=== PATIENT | female | born 2005 | race Caucasian/White ===

== ENCOUNTER 2024-07-25 12:29 | Emergency (ER) | payer MEDICAID, SELFPAY ==
[2024-07-25 12:30] VITALS: BP 139/95; PULSE 101; RESP 20; TEMP 36.1; O2SAT 98; BMI 19.6
--- NOTE | 2024-07-25 13:12 | EDS_ITS ---
HPI History of Present Illness Chief Complaint: Headache PFSH PFSH Allergy/AdvReac Type Severity Reaction Status Date / Time Sulfa (Sulfonamide Allergy Intermediate Hives Verified 07/25/24 12:31 Antibiotics) EXAM Physical Exam Const Vital Signs: 07/25/24 12:30 Temperature 97 F L Temperature Source Temporal Pulse Rate 101 H Respiratory Rate 20 H Blood Pressure 139/95 H Blood Pressure Mean 109 Pulse Ox 98 Oxygen Delivery Method Room Air Discharge Plan Triage Chief Complaint: Headache ED Provider: Dale Crystal Dx/Rx/DC Orders Primary Care Provider: NOT,DEFINED Referrals: NOT,DEFINED [Primary Care Provider] - Print Language: Slovak
--- NOTE | 2024-07-25 13:12 | EX.ED.VIS.HA ---
HPI History of Present Illness Chief Complaint: Headache Informant: patient Onset/Context/Timing Onset: Today Context: Gradual Timing: Continuous Quality -Headache: Positive for Sharp and Dull Location: Right side of head Worsened by: Movement Relieved by: Nothing Associated Symptoms/Injury Associated Symptoms: Positive for Nausea, Vomiting, Sinus Pressure, Numbness, Tingling, Visual Changes and Photophobia; Negative for Fever, Sore Throat, Preceding Aura, Blurred Vision or Visual Loss Narrative Narrative: Patient presents with a headache that began today. Patient states it is mainly over the right side of her head. Patient describes it as dull but sharp at times. Patient states it is constant. Patient states it is worse with certain movements. Patient admits to some nausea and vomiting. Patient admits to some numbness and tingling in her left arm. Patient also admits to some photophobia and spots in front of her eyes. The patient states she has a history of migraine headaches. Patient states she has not been taking her migraine prophylactic medication. [facility] Medical History (Updated 07/25/24 @ 15:[address] Dale Crystal DO) Migraines Home Medications ?Medication ?Instructions ?Recorded ?Last Taken ?Type NK 07/25/24 Unknown History Allergy/AdvReac Type Severity Reaction Status Date / Time Sulfa (Sulfonamide Allergy Intermediate Hives Verified 07/25/24 12:31 Antibiotics) Surgical History Hx of appendectomy Social History Smoking Status: Never smoker ROS ROS ED Constitutional Constitutional ED: Denies chills or fever(s) Eyes Eyes: Reports change in vision; Denies blurry vision ENT ENT ED: Denies rhinorrhea or sore throat Cardiovascular Cardiovascular: Denies chest pain or palpitations Respiratory/Chest Respiratory/Chest: Denies cough or dyspnea Gastrointestinal Gastrointestinal: Reports nausea and vomiting Genitourinary Genitourinary ED: Denies dysuria or hematuria Musculoskeletal Musculoskeletal: Reports neck pain; Denies back pain Integumentary Denies abscess or rash Neurologic Neurologic: Reports headache(s) and paresthesias LUE; Denies weakness Allergic/Immunologic Allergic/Immunologic ED: Denies mouth swelling or urticaria EXAM Physical Exam Const Vital Signs: 07/25/24 12:30 07/25/24 14:30 Temperature 97 F L Temperature Source Temporal Pulse Rate 101 H 85 Respiratory Rate 20 H 16 Blood Pressure 139/95 H 104/65 Blood Pressure Mean 109 78 Pulse Ox 98 98 Oxygen Delivery Method Room Air Room Air Positive well nourished and well developed General Appearance ED: well developed and NAD HEENT Reports moist mucous membranes atraumatic and temporal artery tenderness right Neck supple and no JVD Resp normal respiratory effort and clear to auscultation bilaterally Cardio regular rate and regular rhythm GI non-tender and non-distended Palpation: soft Extremity General Extremety ED: Negative for edema or tenderness General Extremity: Negative for edema Neuro oriented x3, CN's II-XII intact bilaterally and no sensory deficits noted [place] Coma Scale: document GCS findings Spontaneous Obeys Commands Oriented 15 Sensorium / Orientation: awake Speech: speech normal Motor Exam: strength 5/5 throughout Psych mental status grossly normal MDM MDM MDM Narrative Medical decision making narrative: Differential diagnosis includes temporal arteritis, migraine headache, tension headache, and dehydration. CBC will be obtained to assess for leukocytosis and anemia. Basic metabolic profile will be obtained to assess for electrolyte abnormality and renal function. Sed rate and CRP will be obtained to assess for inflammatory markers. Lab Data Attestation: I reviewed the patient's lab results. Lab results narrative: CBC was reviewed. There is some mild leukocytosis of 14.9. Basic metabolic profile was reviewed and was within normal limits. Sed rate was reviewed and was less than 1. CRP was reviewed and was less than 2.9. Labs: Laboratory Results - last 24 hr 07/25/24 13:21 WBC 14.9 H RBC 4.45 Hgb 14.0 Hct 40.6 MCV 91.2 MCH 31.5 MCHC 34.5 RDW Std Deviation 39.0 RDW Coeff of Ron 11.6 Plt Count 458 H MPV 9.6 Immature Gran % (Auto) 0.500 Neut % (Auto) 86.0 H Lymph % (Auto) 9.5 L [place] % (Auto) 3.2 Eos % (Auto) 0.3 Baso % (Auto) 0.5 Absolute Neuts (auto) 12.8 H Absolute Lymphs (auto) 1.42 Nucleated RBC % 0 ESR < 1 Sodium 136 Potassium 3.7 Chloride 106 Carbon Dioxide 22.0 Anion Gap 8 BUN 11 Creatinine 0.76 Estim Creat Clear Calc 98.94 Est GFR (MDRD) Af Amer 124 Est GFR (MDRD) Non-Af 102 BUN/Creatinine Ratio 14.5 Glucose 111 H Calcium 9.5 C-React Prot Ext Range < 2.90 Treatment and Re-Evaluation Narrative: Patient was given IV fluids, Reglan, and Benadryl. Patient was feeling better on reevaluation. Patient still has some pain over the occipital area and right temporal area. Patient was given a dose of Toradol. Patient was instructed to follow-up with her primary care physician in 5 to 7 days. Patient understood and was agreeable with the plan. All questions were answered. Discharge Plan Triage Chief Complaint: Headache ED Provider: Dale Crystal Dx/Rx/DC Orders Clinical Impression: Headache, Elevated blood pressure reading Instructions: ED, Migraine (Classical) Prescriptions: No Action NK Primary Care Provider: Care Physician,No Primary Referrals: NOT,DEFINED [Non-Staff] - 5-7 Days Print Language: [place] Disposition Disposition: Home, Self Care
[2024-07-25] MEDS: 0.9% Normal Saline (1000mL) 1,000 ML 999 ML IV (13:22)
[2024-07-25] MEDS: Metoclopramide 10 MG/2 ML Vial IV (13:23)
[2024-07-25] MEDS: DiphenhydrAMINE 50 MG/ML Syringe 25 MG IV (13:23)
[2024-07-25 14:02] LABS: Anion Gap 8 (5-15); BUN 11 mg/dL (7-18); BUN/Creat Ratio 14.5 RATIO (10-20); CRP < 2.90 mg/L (0.0-3.0); Calcium,Total 9.5 mg/dL (8.5-10.1); Chloride 106 mmol/L (98-107); Creatinine, Serum 0.76 mg/dL (0.55-1.02); EST Glomerular Filtration Rate 102 mL/min (>60); Est Glom Filt Rate - Afr Amer 124 mL/min (>60); Estimated Creatinine Clearance 98.94 ml/min; Glucose 111 mg/dL (74-106); Potassium 3.7 mmol/L (3.5-5.1); Sodium Level 136 mmol/L (136-145)
[2024-07-25 14:18] LABS: Erythrocyte Sedimentation Rate < 1 mm/hr (0-30)
[2024-07-25 14:19] LABS: Absolute Lymphocyte Count 1.42 X10^3/uL (0.83-4.51); Absolute Neutrophil Count 12.8 X10^3/uL (2.0-7.7); Basophil# 0.07 X10^3/uL; Basophil% 0.5 % (0-1); Eosinophil# 0.04 X10^3/uL; Eosinophils% 0.3 % (0-5); Hematocrit 40.6 % (37-47); Lymphocyte # 1.42 X10^3/ul (0.83-4.51); Lymphocyte % 9.5 % (19-41); Mean Corp Hgb Conc 34.5 g/dL (32-36); Mean Corpuscular Hgb 31.5 pg (27.0-32.0); Mean Corpuscular Volume 91.2 fL (81-99); Mean Platelet Vol. 9.6 fl (6.2-12.0); Monocyte# 0.47 X10^3/uL; Monocyte% 3.2 % (0-10); NRBC Flagged by Analyzer 0 % (0-5); Neutrophil # 12.84 X10^3/uL (2.7-7.7); Platelet Count 458 K/mm3 (150-450); RBC Distribution Width CV 11.6 % (11.6-14.6); Red Blood Count 4.45 M/mm3 (4.2-5.4); White Blood Count 14.9 K/mm3 (4.4-11.0)
[2024-07-25 14:30] VITALS: BP 104/65; PULSE 85; RESP 16; O2SAT 98
[2024-07-25 15:28] VITALS: BP 104/65; PULSE 81; RESP 16; TEMP 36.8; O2SAT 100
== END 2024-07-25 15:33 | disposition home or self-care (01) ==
PROVIDERS: Emergency Provider Emergency Medicine; Visit Provider Emergency Medicine
DX: R51.9 Headache, unspecified (principal); R11.2 Nausea with vomiting, unspecified; R03.0 Elevated blood-pressure reading, without diagnosis of hypertension; M54.2 Cervicalgia
CPT/HCPCS: 80048; 85025; 85652; 86140; 96361; 96374; 96375; 99283; A4216